=== PATIENT | female | born 1950 | race Caucasian/White ===

== ENCOUNTER 2017-02-28 12:06 | Emergency (ER) | payer BC, OTHER ==
[~2017-02-28] VITALS: Ht 157.5 cm; Wt 82.3 kg
[2017-02-28] MEDS ORDERED: [UNRECOGNIZED DRUG - CODE] (12:16)
[2017-02-28] MEDS ORDERED: ALLE60TA69 PO (12:16)
[2017-02-28] MEDS ORDERED: LISI10TA2 (12:16)
[2017-02-28] MEDS ORDERED: FLON1SPR (12:16)
[2017-02-28] MEDS ORDERED: IBUPROFEN 600 MG TAB PO ONE (13:00)
--- NOTE | 2017-02-28 13:33 | REP ---
Chest x-ray: Two views. History: Shortness of breath and cough. Comparison study: May 23, 2014. Findings: The lungs are symmetrically aerated and free of infiltrate. Pleural angles are sharp. Heart size is normal. No significant bony abnormality is seen. There are clips in right upper quadrant. Impression: No acute disease. Signed by Tonio Beyer MD 02/28/2017 04:13 P
[2017-02-28] MEDS ORDERED: TUSS1CAP5 PO (13:56)
[2017-02-28 14:23] VITALS: BP 136/67
== END 2017-02-28 14:24 | disposition home or self-care (01) ==
LOC: M ED 12:06
DX: B34.9 Viral infection, unspecified (principal); I10 Essential (primary) hypertension; Z79.899 Other long term (current) drug therapy

== ENCOUNTER → 2019-07-31 | Outpatient (CLI) | payer OTHER ==
[~2019-07-31] MED LIST: ALLE60TA69 PO; FLON1SPR; LISI10TA15; TUSS1CAP5 PO; [UNRECOGNIZED DRUG - CODE]
== END ==
LOC: M LABSMTC 12:31
PROVIDERS: ATTEND Family Medicine
DX: Z03.818 Encounter for observation for suspected exposure to other biological agents ruled out (principal); Z11.59 Encounter for screening for other viral diseases

== ENCOUNTER → 2024-10-03 | Outpatient (REF) | payer OTHER ==
[~2024-10-03] MED LIST changes: -LISI10TA15; +LISI10TA24
== END ==
LOC: M LAB REF 17:54
PROVIDERS: ATTEND Surgery
DX: C21.1 Malignant neoplasm of anal canal (principal); K62.5 Hemorrhage of anus and rectum; C44.92 Squamous cell carcinoma of skin, unspecified

== ENCOUNTER → 2024-10-09 | Outpatient (CLI) | payer OTHER ==
[~2024-10-09] MED LIST changes: +ISOVUE-370 76% 100 ML VIAL As Ordered ONE
[2024-10-09 13:45] LABS: CREATININE FOR GFR 0.83 MG/DL (0.55-1.30); GLOMERULAR FILTRATION RATE 74.9 (>39)
== END ==
LOC: M RAD 12:20
PROVIDERS: ATTEND Surgery
DX: C21.1 Malignant neoplasm of anal canal (principal); K62.5 Hemorrhage of anus and rectum
CPT/HCPCS: 36415; 71260; 74177; 82565; 84520; Q9967